=== PATIENT | male | born 1935 | race Caucasian/White ===

== ENCOUNTER → 2017-09-30 09:52 | Outpatient (CLI) | payer MEDICARE ==
[2016-02-20 14:02] VITALS: BMI 28.8
[~2017-09-30 09:52] MED LIST: ALLOPURINOL TAB 300; AMBIEN10 MG PO; BUMEX2 MG PO; COREG12.5 MG PO; COUMADIN5 MG PO; GLYCOLAX527 GM PO; HYDROCODONE-APA1 TAB PO; K-TAB10 MEQ PO; LESCOL XL80 MG PO; NEXIUM40 MG PO; ZETIA10 MG PO
== END | disposition home or self-care (01) ==
LOC: D.RAD 09:52
DX: R13.10 Dysphagia, unspecified (principal)

== ENCOUNTER → 2017-11-09 11:00 | Outpatient (CLI) | payer MEDICARE ==
[2016-02-20 14:02] VITALS: BMI 28.8
[2017-11-09 12:26] LABS: CREATININE - SERUM 1.9 mg/dL (0.6-1.3)
== END | disposition home or self-care (01) ==
LOC: D.CT 11:00
PROVIDERS: Family Medicine
DX: R51 Headache (principal)

== ENCOUNTER 2018-03-25 15:02 | Emergency (ER) | payer MEDICARE ==
[~2018-03-25] VITALS: Ht 182.9 cm; Wt 94.5 kg
[2018-03-25 15:08] VITALS: Ht 182.9 cm; Wt 94.5 kg
[2018-03-25 15:45] LABS: BASOPHILS 0.6 % (0-2); EOSINOPHILS 5.8 % (0-7); HEMATOCRIT 37.7 % (42.0-54.0); HEMOGLOBIN 12.7 g/dL (13.5-17.5); IMMATURE GRANULOCYTES 0.2 % (0-5); LYMPHOCYTES 21.1 % (15-50); MCH 31.1 pg (26.0-34.0); MCHC 33.7 g/dL (31.0-37.0); MCV 92.4 fL (80.0-100.0); MONOCYTES 10.7 % (2-11); NEUTROPHILS 61.6 % (40-80); PLATELET COUNT 149 10x3/uL (130-400); RBC 4.08 10x6/uL (4.20-6.10); RDW 14.5 % (11.5-14.5); WBC 5.3 10x3/uL (4.8-10.8)
[2018-03-25 16:05] LABS: APTT 34.9 SECONDS (22.8-39.4); INR 1.85 (0.85-1.17); PROTIME 20.7 SECONDS (11.6-15.0)
[2018-03-25 16:07] LABS: D-DIMER-QUANTITATIVE 0.27 ug/mLFEU (0.20-0.54)
[2018-03-25 16:12] LABS: ALBUMIN 3.3 g/dL (3.4-5.0); ALKALINE PHOSPHATASE 76 U/L (46-116); ALT (SGPT) 20 U/L (10-68); BILIRUBIN - TOTAL 0.48 mg/dL (0.2-1.3); CALC OSMOLALITY 288 mosm/kg (275-300); CALCIUM 8.9 mg/dL (8.5-10.1); CARBON DIOXIDE 26.9 mmol/L (21.0-32.0); CHLORIDE - SERUM 107 mmol/L (98-107); CREATININE - SERUM 1.9 mg/dL (0.6-1.3); GLUCOSE 133 mg/dL (74-106); POTASSIUM - SERUM 4.3 mmol/L (3.5-5.1); PROTEIN - SERUM 6.4 g/dL (6.4-8.2); SODIUM 141 mmol/L (136-145); UREA NITROGEN 29 mg/dL (7-18); eGFR NON AFRICAN AMERICAN 36 mL/min (90-120)
[2018-03-25 16:32] LABS: CKMB 1.5 U/L (0.0-3.6); LIPASE 366 U/L (73-393); TROPONIN-I < 0.017 ng/mL (0.000-0.060)
[2018-03-25 19:31] VITALS: BP 169/85
== END 2018-03-25 19:33 | disposition left against medical advice (07) ==
LOC: D.ER 15:02
PROVIDERS: Family Medicine
DX: T82.897A Other specified complication of cardiac prosthetic devices, implants and grafts, initial encounter (principal); I25.10 Atherosclerotic heart disease of native coronary artery without angina pectoris; I44.0 Atrioventricular block, first degree